=== PATIENT | male | born 1970 | race Caucasian/White ===

== ENCOUNTER 2019-03-29 06:54 | Day surgery (SDC) | payer OTHER, MEDICARE, MEDICAID ==
[~2019-03-29] VITALS: Ht 157.5 cm; Wt 61.0 kg
[~2019-03-29 06:54] MED LIST: CARB200T6 PO; DENO60DI SQ; DOCU250C91 PO; FERR-89 PO; FLUT16H NASAL; FOLI1 PO; HYDR-4421 PO; LEVE500T53 PO; LEVO88TA4 PO; MULT-1203 PO; NACL1 PO; OSCD250 PO; PSYL3.4P5 PO; RINGERS SOLUTION,LACTATED 1,000 ML IV ONE
[2019-03-29] MEDS ORDERED: ONDANSETRON HCL 4 MG/2 ML VIAL IVP ONE (06:55)
[2019-03-29] MEDS ORDERED: 0.9% SODIUM CHLORIDE 10 ML VIAL IVP ONE (06:55)
[2019-03-29] MEDS ORDERED: EPHEDrine SULFATE 50 MG/ML VIAL IM ONE (06:55)
[2019-03-29] MEDS ORDERED: PROPOFOL 1% 20 ML VIAL IVP ONE (06:55)
[2019-03-29] MEDS ORDERED: FentaNYL CITRATE-PF 100 MCG/2 ML VIAL IVP ONE (06:55)
[2019-03-29] MEDS ORDERED: KETAMINE HCL 50 MG/ML 10 ML VIAL IM ONE (06:55)
[2019-03-29] MEDS ORDERED: SUCCINYLCHOLINE CHLORIDE 20 MG/ML 10 ML VIAL IVP ONE (06:55)
[2019-03-29] MEDS ORDERED: DEXAMETHASONE SOD PHOS 4 MG/ML VIAL IVP ONE (06:55)
[2019-03-29] MEDS ORDERED: LIDOCAINE/PF 2% 5 ML VIAL IM ONE (06:55)
[2019-03-29] MEDS ORDERED: SODIUM CHLORIDE 0.9% 1,000 ML IV ONE (07:45)
[2019-03-29] MEDS ORDERED: MEPERIDINE-PF 25 MG/ML VIAL IVP PRN (09:15)
[2019-03-29] MEDS ORDERED: FentaNYL CITRATE-PF 100 MCG/2 ML VIAL IVP PRN (09:15)
[2019-03-29] MEDS ORDERED: HYDROmorphone 2 MG/ML SYRINGE IVP PRN (09:15)
[2019-03-29] MEDS ORDERED: OXYGEN THERAPY IH SCH (20:00)
== END 2019-03-29 11:00 | disposition home or self-care (01) ==
LOC: SURGERY 06:54
PROVIDERS: ATTEND Dentist General Practice
DX: K05.30 Chronic periodontitis, unspecified (principal); K21.9 Gastro-esophageal reflux disease without esophagitis; E03.9 Hypothyroidism, unspecified; G40.909 Epilepsy, unspecified, not intractable, without status epilepticus
CPT/HCPCS: 41899; J0330; J1100; J2405; J2704; J3010; J3490 ×3; J7120

== ENCOUNTER 2020-12-18 07:08 | Day surgery (SDC) | payer OTHER, MEDICARE, MEDICAID ==
[~2020-12-18] VITALS: Ht 152.4 cm; Wt 54.5 kg
[~2020-12-18 07:08] MED LIST changes: +DOCU-350 PO; -DOCU250C91 PO; +FOLI-130 PO; -FOLI1 PO
[2020-12-18] MEDS ORDERED: LIDOCAINE/PF 2% 5 ML VIAL IM ONE (07:09)
[2020-12-18] MEDS ORDERED: ROCURONIUM BROMIDE 10 MG/ML 5 ML VIAL IVP ONE (07:09)
[2020-12-18] MEDS ORDERED: DEXAMETHASONE SOD PHOS 4 MG/ML VIAL IVP ONE (07:09)
[2020-12-18] MEDS ORDERED: KETAMINE HCL 50 MG/ML 10 ML VIAL IVP ONE (07:09)
[2020-12-18] MEDS ORDERED: ONDANSETRON HCL 4 MG/2 ML VIAL IVP ONE (07:09)
[2020-12-18] MEDS ORDERED: PROPOFOL 1% 20 ML VIAL IVP ONE (07:09)
[2020-12-18] MEDS ORDERED: SODIUM CHLORIDE 0.9% 100 ML ONE (07:10)
[2020-12-18] MEDS ORDERED: AMPICILLIN SODIUM 1 GM/VIAL ONE (07:11)
[2020-12-18 07:34] LABS: COVID AG,FIA SOURCE NASOPHARYNGEAL
[2020-12-18] MEDS ORDERED: MIDAZOLAM HCL 5 MG/ML VIAL ONE (09:19)
[2020-12-18 09:50] LABS: BASOPHILS % (AUTO) 0.5 % (0.0-2.0); EOSINOPHILS % (AUTO) 0.8 % (1.0-6.0); HEMOGLOBIN 11.4 g/dL (13.5-17.5); LYMPHOCYTES # (AUTO) 1.1 K/uL (1.0-4.8); LYMPHOCYTES % (AUTO) 15.2 % (22.0-44.0); MEAN CORPUSCULAR HGB CONC 33.5 G/dL (31.0-37.0); MEAN CORPUSCULAR VOLUME 90 fL (80-100); MONOCYTES # (AUTO) 0.5 K/uL (0.1-1.0); MONOCYTES % (AUTO) 7.3 % (2.0-9.0); NEUTROPHILS # (AUTO) 5.6 K/uL (1.8-7.7); NEUTROPHILS % (AUTO) 76.2 % (40.0-70.0); PLATELET COUNT (AUTO) 305 K/uL (150-450); RED BLOOD CELL COUNT(AUTO) 3.79 MIL/uL (4.50-5.90); RED CELL DISTRIBUTION WIDTH 12.8 % (11.5-14.5)
[2020-12-18 10:02] LABS: ANION GAP 9 mmol/L (8-16); CALCIUM, TOTAL 8.5 mg/dL (8.8-10.5); CARBON DIOXIDE 25 mmol/L (22-29); CHLORIDE 95 mmol/L (98-107); CREATININE 0.49 mg/dL (0.60-1.30); GLOMERULAR FILTR. RATE CALC > 60 mL/min (>60); GLUCOSE,RANDOM 83 mg/dL (70-110); POTASSIUM 3.9 mmol/L (3.5-5.1); SODIUM SERUM 129 mmol/L (136-145); UREA NITROGEN, BLOOD 8 mg/dL (7-18)
[2020-12-18 10:06] LABS: INR 1.1 (0.9-1.1); PROTHROMBIN TIME 11.4 SEC (9.4-11.6)
[2020-12-18 10:10] LABS: ALANINE AMINOTRANSFERASE 48 U/L (12-78); ALBUMIN 3.5 g/dL (3.4-5.0); ALKALINE PHOSPHATASE 82 U/L (46-116); ASPARTATE AMINOTRANSFERASE 41 U/L (15-37); BILIRUBIN,TOTAL 0.3 mg/dL (0.1-1.0); TOTAL PROTEIN, SERUM 7.3 g/dL (6.4-8.2)
[2020-12-18] MEDS ORDERED: FentaNYL CITRATE PF 100 MCG/2 ML VIAL IVP PRN (11:15)
[2020-12-18] MEDS ORDERED: SUGAMMADEX SODIUM 200 MG/2 ML VIAL IVP ONE (11:34)
[2020-12-18] MEDS ORDERED: RINGERS SOLUTION,LACTATED 1,000 ML IV ONE (11:34)
[2020-12-18] MEDS ORDERED: OXYGEN THERAPY IH SCH (20:00)
== END 2020-12-18 13:10 | disposition home or self-care (01) ==
LOC: SURGERY 07:08
PROVIDERS: ATTEND Dentist General Practice
DX: K02.9 Dental caries, unspecified (principal); K05.30 Chronic periodontitis, unspecified; K03.6 Deposits [accretions] on teeth; G82.50 Quadriplegia, unspecified; E03.9 Hypothyroidism, unspecified; G40.909 Epilepsy, unspecified, not intractable, without status epilepticus; F41.9 Anxiety disorder, unspecified; Z88.8 Allergy status to other drugs, medicaments and biological substances; Z98.890 Other specified postprocedural states; M81.0 Age-related osteoporosis without current pathological fracture; H54.8 Legal blindness, as defined in USA; F63.81 Intermittent explosive disorder; Z20.828 Contact with and (suspected) exposure to other viral communicable diseases
CPT/HCPCS: 36415; 41899; 71045; 80053; 85025; 85610; 85730; 87426; 93005; A9575; C9803; J0290; J1100; J2250; J2405; J2704; J3490 ×3; J7050; J7120

== ENCOUNTER 2024-03-15 06:19 | Day surgery (SDC) | payer OTHER, MEDICARE ==
[~2024-03-15] VITALS: Ht 152.4 cm; Wt 57.3 kg
[~2024-03-15 06:19] MED LIST changes: +CARB-92 PO; -CARB200T6 PO; -DOCU-350 PO; +DOCU-412 PO; -FERR-89 PO; +FERR325T27 PO; -FLUT16H NASAL; +FLUT16SP NASAL; +HYDR-3887 PO; -HYDR-4421 PO; +LEVE500T20 PO; -LEVE500T53 PO; -NACL1 PO; -RINGERS SOLUTION,LACTATED 1,000 ML IV ONE; +SODI100067 PO
[2024-03-15] MEDS ORDERED: RINGERS SOLUTION,LACTATED 1,000 ML IV ONE (07:35)
[2024-03-15 08:07] LABS: BASOPHILS % (AUTO) 0.7 % (0.0-2.0); EOSINOPHILS % (AUTO) 3.5 % (1.0-6.0); HEMATOCRIT 36.7 % (41-53); HEMOGLOBIN 12.6 g/dL (13.5-17.5); LYMPHOCYTES # (AUTO) 2.6 K/uL (1.0-4.8); LYMPHOCYTES % (AUTO) 29.4 % (22.0-44.0); MEAN CORPUSCULAR HGB CONC 34.3 G/dL (31.0-37.0); MEAN CORPUSCULAR VOLUME 90 fL (80-100); MONOCYTES % (AUTO) 11.1 % (2.0-9.0); NEUTROPHILS % (AUTO) 55.3 % (40.0-70.0); PLATELET COUNT (AUTO) 302 K/uL (150-450); RED BLOOD CELL COUNT(AUTO) 4.07 MIL/uL (4.50-5.90); RED CELL DISTRIBUTION WIDTH 13.4 % (11.5-14.5)
[2024-03-15 08:18] LABS: ANION GAP 9 mmol/L (8-16); CALCIUM, TOTAL 8.8 mg/dL (8.8-10.5); CARBON DIOXIDE 27 mmol/L (22-29); CHLORIDE 96 mmol/L (98-107); CREATININE 0.58 mg/dL (0.60-1.30); GLOMERULAR FILTR. RATE CALC > 60 mL/min (>60); GLUCOSE,RANDOM 82 mg/dL (70-110); POTASSIUM 4.2 mmol/L (3.5-5.1); SODIUM SERUM 132 mmol/L (136-145); UREA NITROGEN, BLOOD 9 mg/dL (7-18)
[2024-03-15 08:22] LABS: INR 1.1 (0.9-1.1); PROTHROMBIN TIME 11.4 SEC (9.4-11.6)
[2024-03-15 08:25] LABS: ALANINE AMINOTRANSFERASE 27 U/L (12-78); ALBUMIN 3.6 g/dL (3.4-5.0); ALKALINE PHOSPHATASE 88 U/L (46-116); ASPARTATE AMINOTRANSFERASE 31 U/L (15-37); BILIRUBIN,TOTAL 0.2 mg/dL (0.1-1.0)
[2024-03-15] MEDS ORDERED: CLINDAMYCIN 900 MG/D5% WATER 50 ML IV ONE (08:30)
[2024-03-15] MEDS: RINGERS SOLUTION,LACTATED 1,000 ML IV ONE (09:30)
[2024-03-15] MEDS: BUPIVACAINE 0.25%/EPI 1:200,000/PF 10 ML VIAL ONE (10:33)
[2024-03-15] MEDS ORDERED: SUGAMMADEX SODIUM 200 MG/2 ML VIAL IVP ONE (12:00)
[2024-03-15] MEDS ORDERED: LIDOCAINE/PF 2% 5 ML VIAL IM ONE (12:00)
[2024-03-15] MEDS ORDERED: ROCURONIUM BROMIDE 10 MG/ML 5 ML VIAL IVP ONE (12:00)
[2024-03-15] MEDS ORDERED: PROPOFOL 1% 20 ML VIAL IVP ONE (12:00)
[2024-03-15] MEDS ORDERED: DEXAMETHASONE SOD PHOS 4 MG/ML VIAL IVP ONE (12:00)
[2024-03-15] MEDS ORDERED: ONDANSETRON HCL 4 MG/2 ML VIAL IVP ONE (12:00)
== END 2024-03-15 12:10 | disposition home or self-care (01) ==
LOC: SURGERY 06:19
PROVIDERS: ATTEND Dentist General Practice
DX: K05.30 Chronic periodontitis, unspecified (principal); K02.9 Dental caries, unspecified; K03.6 Deposits [accretions] on teeth; E03.9 Hypothyroidism, unspecified; K59.00 Constipation, unspecified; G82.50 Quadriplegia, unspecified; Z79.899 Other long term (current) drug therapy; Z98.890 Other specified postprocedural states; Z79.01 Long term (current) use of anticoagulants
CPT/HCPCS: 41899; 71045; 80053; 85025; 85610; 85730; 36415; J3490 ×4; J2704; J1100; J2405; Q9967; J7120